=== PATIENT | male | born 1955 | race Caucasian/White ===

== ENCOUNTER 2023-01-12 11:19 | Emergency (ER) | payer OTHER, SELFPAY ==
[2023-01-12 11:21] VITALS: BP 130/96; PULSE 96; RESP 18; TEMP 36.6; O2SAT 98
--- NOTE | 2023-01-12 13:44 | ED.EXTPRO ---
HPI - Extremity Problem General Chief complaint: Extremity Problem,Nontraumatic Stated complaint: toenail injury Time Seen by Provider: 01/12/23 12:07 History of Present Illness HPI Narrative: Patient is a 67-year-old male presenting with toenail problem. Patient states that he has a long history of toenail problems. States that sometimes they fall off. States that the nail on his big toe came off earlier this week and there are pieces still stuck on the sides. States that he went to urgent care who started him on antibiotics but they were unable to remove the retained pieces. States he has not seen a messenger office in many many years. He denies further complaints. Denies recent trauma. Related Data Allergies Allergy/AdvReac Type Severity Reaction Status Date / Time No Known Allergies Allergy Unverified 01/26/19 11:29 Review of Systems Review of Systems: All systems reviewed & are unremarkable except as noted in HPI and below Exam Narrative: GENERAL: Well-appearing, well-nourished, and in no acute distress. Pleasant and cooperative HEAD: Normocephalic, atraumatic. EYES: PERRLA and EOMI. ENT: Nares clear, no rhinorrhea or epistaxis. NECK: Supple. CHEST: No respiratory distress. HEART: Regular rate and rhythm ABDOMEN: Nondistended EXTREMITIES: Normal range of motion. No edema. Right first toe missing nail, nailbed with pink moist granulation tissue, edges of the toenail are tender with palpation, no evidence of purulence, no surrounding cellulitis, DP pulses 2+ SKIN: Warm, dry, no rash. NEURO: No focal deficits. Alert and oriented x3. PSYCH: Normal mood and affect. Course Vital Signs Vital signs: Vital Signs Temperature 98 F 01/12/23 11:21 Pulse Rate 96 01/12/23 11:21 Respiratory Rate 18 01/12/23 11:21 Blood Pressure 130/96 H 01/12/23 11:21 Pulse Oximetry 98 01/12/23 11:21 Oxygen Delivery Room Air 01/12/23 11:21 Temperature 98 F 01/12/23 11:21 Pulse Rate 96 01/12/23 11:21 Respiratory Rate 18 01/12/23 11:21 Blood Pressure 130/96 H 01/12/23 11:21 Pulse Oximetry 98 01/12/23 11:21 Oxygen Delivery Room Air 01/12/23 11:21 MDM - Extremity (Nontraumatic) MDM Narrative Medical decision making narrative: Patient is a 67-year-old male presenting with a right big toe nail avulsion with concern for retained nail pieces. Vitals are stable. Exam remarkable for the above. The nailbed does appear to have healthy granulation tissue and there is no evidence of active infection. I do not feel comfortable incising the area and trying to remove any retained nail fragments. Patient needs to follow-up very closely with podiatry and he is agreeable with this plan. We will provide several numbers for him to try to get as close to follow-up as possible. Appropriate return precautions given. Patient voiced understanding and is agreeable with plan. Discharged in stable condition. Differential Diagnosis Differential diagnosis: Likely other (Nail avulsion, nailbed laceration, cellulitis, toenail injury) Medical Records Attestation: I reviewed the patient's medical records. Critical Care Time Critical Care Time Critical Care Time: No Discharge Plan Discharge Clinical Impression: Nail avulsion, toe Patient Disposition: Home, Self-Care Condition: Stable Instructions: Antibiotic Form, Nail Avulsion (ED) Additional Instructions: Please continue taking the medications as prescribed for your toe including the antibiotics. Please follow-up closely with podiatry as well as primary care. If your symptoms worsen, you develop chest pain, shortness of breath, numbness or weakness, vomiting, fevers >100.4F, or other concerning symptoms arise, please return to the ER. [facility] [place] - [facility] - Follow-up/Referrals: Bill Silav JR, MD [Physician] - PHYSICIAN,[employer] [Primary Care Provider] -
== END 2023-01-12 13:52 | disposition home or self-care (01) ==
PROVIDERS: Emergency Provider Emergency Medicine
DX: S91.201A Unspecified open wound of right great toe with damage to nail, initial encounter (principal); X58.XXXA Exposure to other specified factors, initial encounter
CPT/HCPCS: 99282